=== PATIENT | male | born 1955 | race African-American/Black ===

== ENCOUNTER 2020-02-14 14:10 | Emergency (ER) | payer MEDICARE, OTHER ==
[~2020-02-14] VITALS: Ht 180.3 cm; Wt 77.0 kg
[2020-02-14] MEDS ORDERED: ACETAMINOPHEN 325MG TABLET PO ONE (15:30)
[2020-02-14] MEDS ORDERED: KETOROLAC 15MG/ML VIAL IM ONE (15:30)
[2020-02-14 15:57] VITALS: BP 111/78
== END 2020-02-14 15:59 | disposition home or self-care (01) ==
LOC: ER 14:10
DX: S39.012A Strain of muscle, fascia and tendon of lower back, initial encounter (principal); V43.52XA Car driver injured in collision with other type car in traffic accident, initial encounter; Y93.89 Activity, other specified; Y92.89 Other specified places as the place of occurrence of the external cause; Y99.8 Other external cause status
CPT/HCPCS: 96372; 99283; J1885